=== PATIENT | male | born 1985 | race Caucasian/White ===

== ENCOUNTER → 2023-05-19 19:50 | Outpatient (CLI) | payer OTHER, SELFPAY ==
--- NOTE | 2023-05-19 20:59 | XR_ITS ---
PROCEDURE INFORMATION: Exam: XR Left Hand Exam date and time: 05/19/2023 8:52 PM Age: 37 years old Clinical indication: Hand; Left; Patient HX: Denies any injury. States pain/swelling around 5th digit, radiating down to wrist TECHNIQUE: Imaging protocol: Radiologic exam of the left hand. Views: 3 or more views. COMPARISON: No relevant prior studies available. FINDINGS: Bones/joints: Normal. No acute fracture identified. Soft tissues: Normal. IMPRESSION: No acute findings.
== END ==
PROVIDERS: PCP Social Worker; Visit Provider Social Worker
DX: M79.642 Pain in left hand (principal)
CPT/HCPCS: 73130